=== PATIENT | female | born 1990 | race African-American/Black ===

== ENCOUNTER 2020-04-30 14:26 | Emergency (ER) | payer OTHER, SELFPAY ==
[2020-04-30] VITALS (10 sets, daily range): BP systolic 139–149; BP diastolic 70–129; PULSE 56–79; RESP 12–20; TEMP 36.6; O2SAT 99–100
--- NOTE | ~2020-04-30 | XR_ITS ---
EXAMINATION: XR chest 1V portable EXAM DATE: 04/30/2020 15:59 INDICATION: Shortness of breath. History of asthma. TECHNIQUE: Portable AP frontal chest x-ray was obtained. There is no prior study for comparison. FINDINGS: The lungs are clear. There is normal lung volume. There are no pleural effusions. Cardiac silhouette is prominent but magnified on this. There is no pneumothorax suspected. The bones and s oft tissues are unremarkable. IMPRESSION: Prominent cardiac size for age, but could be at least partly from AP technique. Reviewed, dictated and finalized at location A. CTOR OF INSTITUTIONAL GIVING IMPRESSION: Prominent cardiac size for age, but could be at least partly from A P technique.
[2020-04-30] MEDS: predniSONE 20 MG TABLET 60 MG PO (15:28)
[2020-04-30] MEDS: ALBUTEROL SULFATE (*SP) INHALER 1 PUFF (15:44)
--- NOTE | 2020-04-30 15:58 | ED.ASTHMA ---
HPI - Asthma General Chief Complaint: Asthma Stated Complaint: chest pain Time Seen by Provider: 04/30/20 14:40 Source: patient Mode of arrival: ambulatory Limitations: no limitations History of Present Illness HPI Narrative: Patient presents with complaint of shortness of breath and chest tightness status post asthma exacerbation over the last 2 days patient notes she lost her inhalers patient denies any pain or URI symptoms does have history of tobacco abuse presents in no distress does not appear Related Data Home Medications Medication Instructions Recorded Confirmed albuterol mcg INHALATION 04/30/20 Allergies Allergy/AdvReac Type Severity Reaction Status Date / Time acetaminophen [From Tylenol] Allergy Unknown Verified 04/30/20 14:31 Review of Systems Review of Systems: All systems reviewed & are unremarkable except as noted in HPI and below PMFSH Past Medical History Medical History (Updated 04/30/20 @ 16:00 by Neo eMraz PA-C) Asthma Social History Social History Gender identity (if verbalized by the patient): Female Exam Narrative: Exam Narrative: GENERAL: Well-appearing, obese, and in no acute distress. HEAD: Normocephalic, atraumatic. EYES: PERRLA and EOMI. ENT: Nares clear, no rhinorrhea or epistaxis. Mucous membranes moist. CHEST: Clear to auscultation. No respiratory distress. No wheezes rales or rhonchi HEART: Regular rate and rhythm. No murmur heard. EXTREMITIES: Normal range of motion. No edema. SKIN: Warm, dry, no rash. NEURO: No focal deficits. Alert and oriented x3. PSYCH: Normal mood and affect. Course Course Emergency Course: Patient in the room no distress will be discharged home medications provided advised to follow with primary care normal vital signs no distress no pneumonia Vital Signs Vital signs: Vital Signs Temperature 97.8 F 04/30/20 14:28 Pulse Rate 76 04/30/20 14:28 Respiratory Rate 04/30/20 14:28 Blood Pressure 146/86 H 04/30/20 14:28 Pulse Oximetry 100 04/30/20 14:28 Temperature 97.8 F 04/30/20 14:28 Pulse Rate 76 04/30/20 14:28 Respiratory Rate 20 04/30/20 14:28 Blood Pressure 146/86 H 04/30/20 14:28 Pulse Oximetry 100 04/30/20 14:45 MDM - Asthma MDM Narrative Medical decision making narrative: Patient with asthma exacerbation given MDI instruct negative chest x-ray normal vital signs felt appropriate for outpatient reevaluation Discharge Plan Discharge Clinical Impression: Asthma with acute exacerbation Patient Disposition: Home, Self-Care Condition: Stable Instructions: Antibiotic Form, Asthma (ED) Additional Instructions: Follow up with your primary care provider within 3-5 days. Go to ER for shortness of breath, difficulty breathing, chest pain, fever/chills, weakness, nauseau/vomitting, etc. or any other concerns. Take any prescribed medications as directed. If you do not have a drug allergy to tylenol or motrin and can tolerate it then take tylenol or motrin as needed for discomfort/pain. Prescriptions: New albuterol sulfate 90 mcg/actuation HFA aerosol inhaler 2 puff inhalation QID PRN (Reason: shortness of breath or wheezing) Qty: 6.7 RF: 0 montelukast [Singulair] 10 mg tablet 10 mg PO DAILY Qty: 10 RF: 0 No Action albuterol 90 mcg/actuation Aerosol INHALATION RF: 0 Follow-up/Referrals: PHYSICIAN,MIXING OPERATOR [Primary Care Provider] - Jak Alvarez, [Physician] - Stand Alone Forms: Work/School Release IP
== END 2020-04-30 16:21 | disposition home or self-care (01) ==
PROVIDERS: Emergency Provider Emergency Medicine
DX: J45.901 Unspecified asthma with (acute) exacerbation (principal)
CPT/HCPCS: 71045; 99283; A9270; J7512